=== PATIENT | male | born 1990 ===

== ENCOUNTER → 2018-11-03 | Outpatient (REF) | payer OTHER ==
[2018-11-03 13:36] LABS: SEMEN APPEARANCE OPAQUE (OPAQUE); SEMEN VISCOSITY LIQUID (LIQUID); SPERM CONCENTRATION 23.1 M/ml (>=15.0); WBC CONCENTRATION <=1 M/ml (<=1 M/ml)
== END ==
LOC: M LAB REF 12:32
PROVIDERS: ATTEND Student in an Organized Health Care Education/Training Program
DX: Z31.41 Encounter for fertility testing (principal)